=== PATIENT | male | born 1945 | race Hispanic/Latino ===

== ENCOUNTER 2017-07-02 12:37 | Emergency (ER) | payer MEDICARE ==
[~2017-07-02] VITALS: Ht 162.6 cm; Wt 60.8 kg
[2017-07-02] MEDS ORDERED: TRAMADOL HCL 50 MG TAB PO ONE (12:45)
--- NOTE | 2017-07-02 13:53 | Diagnostic Imaging Report ---
Right Ankle - 3 views HISTORY: Pain. COMPARISON: None available. FINDINGS: Bones: No acute displaced fracture. No expansile lytic or sclerotic lesion. Joints: The joint spaces are well-maintained. No dislocation. Soft tissues: The soft tissues appear unremarkable. IMPRESSION: No acute radiographic abnormality. Signed by: Dr. Alfonzo Cheng M.D. on 07/02/2017 1:49 PM
== END 2017-07-02 14:12 | disposition home or self-care (01) ==
LOC: ER 12:37
DX: M79.671 Pain in right foot (principal); M25.474 Effusion, right foot; R23.3 Spontaneous ecchymoses; R26.2 Difficulty in walking, not elsewhere classified; I10 Essential (primary) hypertension
CPT/HCPCS: 99283